=== PATIENT | female | born 1970 | race Two or more races ===

== ENCOUNTER 2018-02-19 15:45 | Inpatient (IN) | payer SELFPAY ==
[~2018-02-19 15:45] MED LIST: CITA10SO PO; CLON1 PO; HYDR12.56 PO; LOSA100T PO; TOPR50TA PO
[2018-02-19 20:00] VITALS: BP 197/106; PULSE 81; RESP 17; TEMP 98; O2SAT 100
[2018-02-19 21:08] VITALS: BP_SYST 202; BP_SYST 215; BP_DIAS 110; BP_DIAS 111; PULSE 71; RESP 18; O2SAT 100
[2018-02-19] MEDS ORDERED: cloNIDine HCL 0.1 MG TAB PO ONE (21:30)
[2018-02-19] MEDS ORDERED: cloNIDine HCL 0.1 MG TAB PO PRN (21:30)
[2018-02-19] MEDS ORDERED: ACETAMINOPHEN 325 MG TAB PO PRN (22:45)
[2018-02-19] MEDS ORDERED: ALUMINUM/MAGNESIUM/SIMETH 30 ML CUP PO PRN (22:45)
[2018-02-19] MEDS ORDERED: LORazepam 1 MG TAB PO PRN (22:45)
[2018-02-19] MEDS ORDERED: LORazepam 2 MG/ML VIAL IM PRN (22:45)
[2018-02-19] MEDS ORDERED: MAGNESIUM HYDROXIDE SUSP 30 ML CUP PO PRN (22:45)
[2018-02-19 23:00] VITALS: BP 154/83; PULSE 72; RESP 18; TEMP 97.6; O2SAT 97
[2018-02-20 03:56] VITALS: BP 143/88; PULSE 64; RESP 16; TEMP 97.5; O2SAT 98
[2018-02-20 06:52] VITALS: BP 132/70; PULSE 65; RESP 18; TEMP 97.9; O2SAT 98
[2018-02-20] MEDS ORDERED: NICOTINE 21 MG/24 HR PATCH T-DERMAL SCH (09:00)
[2018-02-20] MEDS: REMOVE OLD PATCH T-DERMAL SCH (09:00)
[2018-02-20 09:39] LABS: BICARBONATE 23.9 MEQ/L (21.0-32.0); BLOOD UREA NITROGEN 10 MG/DL (7-18); CHLORIDE 105 MEQ/L (98-107); CREATININE 0.75 MG/DL (0.50-1.00); GLOMERULAR FILTRATION RATE 83 ML/MIN (>89); GLUCOSE,RANDOM 110 MG/DL (74-106); SODIUM (NA) 141 MEQ/L (136-145)
[2018-02-20 09:40] LABS: CHOLESTEROL 251 MG/DL (120-200)
[2018-02-20] MEDS: METOPROLOL SUCCINATE 50 MG EXTENDED RELEASE TAB PO SCH (09:42)
[2018-02-20] MEDS: LOSARTAN 50 MG TAB PO SCH (09:42)
[2018-02-20 09:49] LABS: CHOLESTEROL/ HDL RATIO 5.56 RATIO; HDL CHOLESTEROL 45.1 MG/DL (40.0-60.0); LDL CHOLESTEROL 146 MG/DL (0-99); TRIGLYCERIDES 301 MG/DL (42-150)
[2018-02-20] MEDS ORDERED: ASPIRIN EC 81 MG TABEC PO ONE (10:30)
[2018-02-20] MEDS ORDERED: HYDROCHLOROTHIAZIDE 12.5 MG CAP PO ONE (10:30)
--- NOTE | 2018-02-20 10:30 | PD.CONS ---
HPI Service [facility] Hospitalists Consult Requested By Psychiatric service Reason for Consult Management of hypertension Primary Care Physician No Primary Care Physician Diagnoses: History of Present Illness This is a 47-year-old Czech female with a past medical history significant for hypertension and depression who was admitted to inpatient psychiatry and hospitalist services have been consulted for assistance with hypertensive medical management. Patient seen and examined. Upon her presentation to the psychiatric unit patient was found to have extremely elevated blood pressure 215/110. Patient was given a one-time dose of clonidine. Her blood pressure is much improved this morning and is currently 132/70. She is complaining of a mild headache which she states she normally gets with elevated blood pressure. She denies any other acute medical complaints. She denies any dizziness, lightheadedness or vision changes. She denies any numbness, tingling or weakness. She denies any lateralizing symptoms. She denies any nausea, vomiting or abdominal pain. She denies any chest pain or shortness of breath. She denies any urinary difficulties, diarrhea or constipation. 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 Depression Past Surgical History Hysterectomy Cholecystectomy Reported Medications Klonopin (Clonazepam) 1 Mg Tab 1 Mg PO BID Celexa (Citalopram Hydrobromide) 10 Mg/5 Ml Neha 20 Mg PO DAILY Toprol Xl (Metoprolol Succinate) 50 Mg Tabcr 50 Mg PO DAILY Hydrochlorothiazide (Miscellaneous Medication) 12.5 Mg Tab 12.5 Mg PO DAILY Losartan Potassium 100 MG (Losartan Potassium) 100 Mg Tab 100 Mg PO DAILY Active Ordered Medications Current Medications Medications (Trade) Dose Ordered Sig/Erum Route Start Time Stop Time Status Last Admin (Catapres) 0.1 mg Q6H PRN PO 02/19/18 21:30 (Toprol Xl) 50 mg DAILY PO 02/20/18 09:00 02/20/18 09:42 (Cozaar) 100 mg DAILY PO 02/20/18 09:00 02/20/18 09:42 (Ativan) 1 mg Q6H PRN PO 02/19/18 22:45 Future Hold (Ativan Inj) 1 mg Q6H PRN IM 02/19/18 22:45 Future Hold (Benadryl) 50 mg HS PRN PO 02/19/18 22:45 Future Hold (Tylenol) 650 mg Q4H PRN PO 02/19/18 22:45 (Milk Of Magnesia Liq) 30 ml DAILY PRN PO 02/19/18 22:45 (Mag-Al Plus Susp Liq) 30 ml Q6H PRN PO 02/19/18 22:45 (Habitrol 21 Mg Patch.24 Hr) 1 patch DAILY T-DERMAL 02/20/18 09:00 Miscellaneous Information 1 DAILY T-DERMAL 02/20/18 09:00 Family History Mother, hypertension, bipolar disorder, depression Father, Alzheimer's dementia Social History Patient denies any tobacco use or illicit drug use. She reports alcohol consumption usually once a week on Saturdays. Physical Exam Vital Signs Vital Signs Date Time Temp Pulse Resp B/P (MAP) Pulse Ox O2 Delivery O2 Flow Rate FiO2 02/20/18 06:52 97.9 65 18 132/70 (90) 98 02/20/18 03:56 97.5 64 16 143/88 (106) 98 02/19/18 23:00 97.6 72 18 154/83 (106) 97 02/19/18 21:08 71 18 202/111 (141) 100 215/110 (145) 02/19/18 20:00 98.0 81 17 197/106 (136) 100 Physical Exam GENERAL: This is a well-nourished, well-developed very pleasant Czech female patient, in no apparent distress. Awake and alert. SKIN: No rashes, ecchymoses or lesions. Cool and dry. HEAD: Atraumatic. Normocephalic. No temporal or scalp tenderness. + Left-sided facial droop noted, chronic per patient report EYES: Pupils equal round and reactive. Extraocular motions intact. No scleral icterus. No injection or drainage. ENT: Nose without bleeding or purulent drainage. Throat without erythema, tonsillar hypertrophy or exudate. Uvula midline. Airway patent. NECK: Trachea midline. No lymphadenopathy. Supple, nontender, no meningeal signs. CARDIOVASCULAR: Regular rate and rhythm without murmurs, gallops, or rubs. RESPIRATORY: Clear to auscultation. Breath sounds equal bilaterally. No wheezes , rales, or rhonchi. GASTROINTESTINAL: Abdomen soft, non-tender, nondistended. No hepato-splenomegaly , or palpable masses. No guarding. MUSCULOSKELETAL: Extremities without clubbing, cyanosis, or edema. No joint tenderness, effusion, or edema noted. No calf tenderness. NEUROLOGICAL: Awake and alert. Cranial nerves II through XII intact. Motor and sensory grossly within normal limits. Normal speech. Laboratory Laboratory Tests Test 02/20/18 07:55 Blood Urea Nitrogen 10 Creatinine 0.75 Random Glucose 110 Calcium Level 9.0 Sodium Level 141 Potassium Level 3.5 Chloride Level 105 Carbon Dioxide Level 23.9 Anion Gap 12 Estimat Glomerular Filtration Rate 83 Triglycerides Level 301 Cholesterol Level 251 LDL Cholesterol 146 HDL Cholesterol 45.1 Cholesterol/HDL Ratio 5.56 Thyroid Stimulating Hormone 3rd Gen 3.190 Result Diagram: 02/20/18 0755 Assessment and Plan Assessment and Plan 47-year-old Czech female with a past medical history significant for hypertension who was admitted to inpatient psychiatry and hospitalist services have been consulted for assistance with hypertensive medical management. 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 We will continue to follow patient along with you. Lissy Hyatt Feb 20, 2018 10:30
[2018-02-20 10:43] VITALS: BP 145/78; PULSE 66; RESP 18; TEMP 98.2; O2SAT 98
[2018-02-20] MEDS ORDERED: cloNIDine HCL 0.1 MG TAB PO PRN (11:15)
[2018-02-20 13:14] LABS: ALBUMIN 3.6 GM/DL (3.4-5.0); DIRECT BILIRUBIN ADULT 0.1 MG/DL (0.0-0.2)
[2018-02-20 13:17] LABS: INDIRECT BILIRUBIN 0.2 MG/DL (0.0-0.8); TOTAL BILIRUBIN ADULT 0.3 MG/DL (0.2-1.0); TOTAL PROTEIN 7.8 GM/DL (6.4-8.2)
[2018-02-20 13:21] LABS: HEMOGLOBIN A1C 5.2 % (4.3-6.0)
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
[2018-02-20] MEDS ORDERED: hydrOXYzine HCL 50 MG TAB PO PRN (14:00)
[2018-02-20] MEDS ORDERED: diphenhydrAMINE HCL 50 MG CAP PO PRN (14:00)
--- NOTE | 2018-02-20 14:41 | EKG ---
Date Performed: 02/20/2018 Time Performed: 10:49:06 PTAGE: 47 years EKG: Sinus rhythm NONSPECIFIC T-WAVE ABNORMALITY ABNORMAL ECG NO PREVIOUS TRACING DOCTOR: Trell Rapp Interpretating Date/Time 02/20/2018 14:39:58
[2018-02-20] MEDS ORDERED: NICOTINE 21 MG/24 HR PATCH T-DERMAL PRN (15:00)
[2018-02-20 18:05] VITALS: BP 116/63; PULSE 91; RESP 17; TEMP 98.4; O2SAT 97
[2018-02-20 19:00] VITALS: BP 116/63; PULSE 91; RESP 17; TEMP 98.4; O2SAT 97
[2018-02-20] MEDS: diphenhydrAMINE HCL 50 MG CAP PO PRN (22:14)
[2018-02-21 00:59] VITALS: BP 139/73; PULSE 72; RESP 18; TEMP 98; O2SAT 100
[2018-02-21 05:48] VITALS: BP 157/81; PULSE 67; RESP 16; TEMP 97.9; O2SAT 99
[2018-02-21] MEDS: FLUoxetine HCL 20 MG CAP PO SCH (08:15)
[2018-02-21] MEDS: ASPIRIN EC 81 MG TABEC PO SCH (08:16)
[2018-02-21] MEDS: REMOVE OLD PATCH T-DERMAL SCH (08:16)
[2018-02-21] MEDS: HYDROCHLOROTHIAZIDE 12.5 MG CAP PO SCH (08:16)
[2018-02-21] MEDS: LOSARTAN 50 MG TAB PO SCH (08:16)
[2018-02-21] MEDS: METOPROLOL SUCCINATE 50 MG EXTENDED RELEASE TAB PO SCH (08:16)
[2018-02-21] MEDS ORDERED: ACETAMIN 325 MG/BUTALBITAL 50 MG/CAFFEINE 40 MG TAB PO ONE (08:45)
[2018-02-21] MEDS ORDERED: METOPROLOL SUCCINATE 50 MG EXTENDED RELEASE TAB PO ONE (09:00)
--- NOTE | 2018-02-21 13:01 | HHI.PYPN ---
Subjective Chief Complaint: Depression, SI Remarks Pt seen and discussed with staff. She has been pleasant and cooperative. She remains depressed but denies SI today. She reports that she lost insurance and has been unable to access psychiatric treatment for some time. She states that she has struggled with depression for many years, but had been in remission for about 4 years. She states that over the past month depression symptoms returned and became impairing. Pt states that she began having intrusive suicidal thoughts with very minor stressors. She states that last Thursday symptoms became exceptionally bad and she began having increased frequency of SI, so she knew that she needed to seek help. "I know how bad it can get for me. I came to the hospital because I had no other way to get help." Discussed with pt community resources available. No AVH. She is compliant with medications and denies side effects. Mental Status Examination Appearance: Appropriate Consciousness: Alert Orientation: x4 Motor Activity: Normal gait Speech: Unremarkable Language: Adequate Fund of Knowledge: Adequate Attention and Concentration: Adequate Memory: Unremarkable Mood: Sad Affect: Appropriate, Sad Thought Process & Associations: Intact, Logical, Linear Thought Content: Appropriate Hallucination Type: None Delusion Type: None Suicidal Ideation: No Suicidal Plan: No Suicidal Intention: No Homicidal Ideation: No Homicidal Plan: No Homicidal Intention: No Insight: Adequate Judgment: Adequate Results Vitals/IOs Vital Signs Date Time Temp Pulse Resp B/P (MAP) Pulse Ox O2 Delivery O2 Flow Rate FiO2 02/21/18 05:48 97.9 67 16 157/81 (106) 99 Assessment & Plan Problem List: (1) Major depressive disorder, recurrent severe without psychotic features ICD Codes: F33.2 - Major depressive disorder, recurrent severe without psychotic features Assessment & Plan Continue current tx plan. Pt will need connection to outpatient services upon discharge. Estimated LOS: days Justification for Cont. Inpt. monitoring for safety Request HC Surrog/Guard Advoc?: No Jennifer Sandoval MD Feb 21, 2018 13:01
--- NOTE | 2018-02-21 14:23 | HHI.PR ---
Subjective Remarks Follow-up on patient with hypertension. Patient seen and examined. Patient complaining of headache. She says she has a history of migraines. Patient states she takes 200 mg of metoprolol XL daily and that the dosing we have her on here in the hospital is wrong. She denies any complaints of dizziness, lightheadedness or vision changes. She denies any nausea vomiting or abdominal pain. She denies any chest pain or shortness of breath. Objective Vitals Vital Signs Date Time Temp Pulse Resp B/P (MAP) Pulse Ox O2 Delivery O2 Flow Rate FiO2 02/21/18 05:48 97.9 67 16 157/81 (106) 99 02/21/18 00:59 98.0 72 18 139/73 (95) 100 02/20/18 19:00 98.4 91 17 116/63 (80) 97 Automatic Cuff 02/20/18 18:05 98.4 91 17 116/63 (80) 97 Result Diagram: 02/20/18 0755 Objective Remarks GENERAL: This is a well-nourished, well-developed very pleasant [place] female patient, in no apparent distress. Awake and alert. Lying in bed. SKIN: No rashes, ecchymoses or lesions. Cool and dry. HEAD: Atraumatic. Normocephalic. No temporal or scalp tenderness. + Left-sided facial droop noted, chronic per patient report EYES: Pupils equal round and reactive. Extraocular motions intact. No scleral icterus. No injection or drainage. ENT: Nose without bleeding or purulent drainage. Airway patent. MMM. NECK: Trachea midline. No lymphadenopathy. CARDIOVASCULAR: Regular rate and rhythm without murmurs, gallops, or rubs. RESPIRATORY: Clear to auscultation. Breath sounds equal bilaterally. No wheezes , rales, or rhonchi. GASTROINTESTINAL: Abdomen soft, non-tender, nondistended. No hepato-splenomegaly , or palpable masses. No guarding. MUSCULOSKELETAL: Extremities without clubbing, cyanosis, or edema.No calf tenderness. NEUROLOGICAL: Awake and alert. Cranial nerves II through XII intact. Motor and sensory grossly within normal limits. Normal speech. PSYCHIATRIC: Calm and cooperative. Procedures None A/P Assessment and Plan 47-year-old [place] female with a past medical history significant for hypertension who was admitted to inpatient psychiatry and hospitalist services have been consulted for assistance with hypertensive medical management. Adjustment disorder Depression -Management per psychiatric team Hypertensive urgency, much improved -Continue patient on losartan 100 mg daily and hydrochlorothiazide 12.5 mg daily -Verified on patient's prescription bottle that she takes 200 mg Toprol-XL daily. Will increase her current dose to 100 mg daily as she has had some systolic BPs in the 110s this admission. 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
[2018-02-21 19:28] VITALS: BP 149/88; PULSE 66; RESP 18; TEMP 96.4; O2SAT 100
[2018-02-21] MEDS: diphenhydrAMINE HCL 50 MG CAP PO PRN (21:12)
[2018-02-22] VITALS: BP 142/80; PULSE 88
[2018-02-22 06:15] VITALS: BP 123/65; PULSE 62; RESP 16; TEMP 97.6; O2SAT 98
[2018-02-22] MEDS: LOSARTAN 50 MG TAB PO SCH (08:35)
[2018-02-22] MEDS: ASPIRIN EC 81 MG TABEC PO SCH (08:36)
[2018-02-22] MEDS: HYDROCHLOROTHIAZIDE 12.5 MG CAP PO SCH (08:36)
[2018-02-22] MEDS: FLUoxetine HCL 20 MG CAP PO SCH (08:36)
[2018-02-22] MEDS: REMOVE OLD PATCH T-DERMAL SCH (08:37)
[2018-02-22] MEDS ORDERED: METOPROLOL SUCCINATE 50 MG EXTENDED RELEASE TAB PO SCH (09:00)
[2018-02-22 10:00] VITALS: BP 119/70; PULSE 65; RESP 18
--- NOTE | 2018-02-22 11:25 | HHI.PR ---
Subjective Remarks Follow-up on patient with hypertension. Patient seen and examined. Patient is doing well. She denies any complaints. She denies any fever or chills. Denies any dizziness or lightheadedness. She denies any N/V or abdominal pain. She denies any chest pain or dyspnea. Objective Vitals Vital Signs Date Time Temp Pulse Resp B/P (MAP) Pulse Ox O2 Delivery O2 Flow Rate FiO2 02/22/18 10:00 65 18 119/70 (86) 02/22/18 06:15 97.6 62 16 123/65 (84) 98 02/22/18 00:00 88 142/80 (100) 02/21/18 19:28 96.4 66 18 149/88 (108) 100 Result Diagram: 02/20/18 0755 Objective Remarks GENERAL: This is a well-nourished, well-developed very pleasant [place] female patient, in no apparent distress. Awake and alert. Ambulating around room and in unit without any difficulty. SKIN: Warm and dry. No rash. HEAD: Atraumatic. Normocephalic. + Left-sided facial droop noted, chronic per patient report EYES: Extraocular motions intact. No scleral icterus. No injection or drainage. ENT: Nose without bleeding or purulent drainage. Airway patent. MMM. NECK: Trachea midline. CARDIOVASCULAR: Regular rate and rhythm without murmurs, gallops, or rubs. RESPIRATORY: Clear to auscultation. Breath sounds equal bilaterally. No wheezes , rales, or rhonchi. GASTROINTESTINAL: Abdomen soft, non-tender, nondistended. No guarding. MUSCULOSKELETAL: Extremities without clubbing, cyanosis, or edema. No calf tenderness. NEUROLOGICAL: Awake and alert. Cranial nerves II through XII intact. Motor and sensory grossly within normal limits. Normal speech. PSYCHIATRIC: Calm and cooperative. Procedures None A/P Assessment and Plan 47-year-old [place] female with a past medical history significant for hypertension who was admitted to inpatient psychiatry and hospitalist services have been consulted for assistance with hypertensive medical management. Adjustment disorder Depression -Management per psychiatric team Hypertensive urgency, much improved -Continue patient on losartan 100 mg daily and hydrochlorothiazide 12.5 mg daily -Verified on patient's prescription bottle that she takes 200 mg Toprol-XL daily. Increased her current dose to 100 mg daily as she has had some systolic BPs in the 110s this admission. Continue. 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 [facility] will sign off. Please reconsult if needed. Lissy Hyatt Feb 22, 2018 11:25
--- NOTE | 2018-02-22 12:56 | PD.TTN ---
Patient Problems 1. Discharge planning 2. Medication compliance 3. Knowledge deficit 4. Lack of coping skills Progress Toward Goals Provider Present: Dr. Darby Robert Provider Input: 02/22/18- New admit Tj Mejia Feb 22, 2018 12:56
[2018-02-22 14:00] VITALS: BP 162/89; PULSE 63; RESP 16; O2SAT 89
[2018-02-22 15:00] VITALS: BP 149/85; PULSE 68
[2018-02-22] MEDS ORDERED: ECASA81 PO (16:17)
[2018-02-22] MEDS ORDERED: HYDR12.57 PO (16:17)
[2018-02-22] MEDS ORDERED: LOSA100T PO (16:17)
[2018-02-22] MEDS ORDERED: FLUO20CA12 PO (16:17)
[2018-02-22] MEDS ORDERED: METO1TAB43 PO (16:17)
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
== END 2018-02-22 17:15 | disposition home or self-care (01) | DRG 885 ==
LOC: OBSVTOIN 15:45 → H260 15:45 → UNDOADMOB 19:49
PROVIDERS: ADMIT Psychiatry & Neurology Psychiatry; ATTEND Psychiatry & Neurology Psychiatry
DX: F33.2 Major depressive disorder, recurrent severe without psychotic features (principal); R45.851 Suicidal ideations; I10 Essential (primary) hypertension; F43.23 Adjustment disorder with mixed anxiety and depressed mood; E78.5 Hyperlipidemia, unspecified; G43.909 Migraine, unspecified, not intractable, without status migrainosus; I16.0 Hypertensive urgency; I69.992 Facial weakness following unspecified cerebrovascular disease; Z91.5 Personal history of self-harm; Z79.82 Long term (current) use of aspirin; Z90.710 Acquired absence of both cervix and uterus; Z90.49 Acquired absence of other specified parts of digestive tract
CPT/HCPCS: 80048; 80061; 80076; 83036; 84443; 93005; Q0163